=== PATIENT | female | born 1985 | race Caucasian/White ===

== ENCOUNTER → 2023-05-04 09:02 | Outpatient (REF) | payer OTHER, SELFPAY | LOC: HWRAD 09:02 | PROVIDERS: ATTENDING PHYSICIAN Physician Assistant | DX: M25.561 Pain in right knee (principal); S89.91XA Unspecified injury of right lower leg, initial encounter | CPT/HCPCS: 73564 ==

== ENCOUNTER → 2023-09-06 14:39 | Outpatient (REF) | payer OTHER, SELFPAY | LOC: HWRAD 14:39 | PROVIDERS: ATTENDING PHYSICIAN Physician Assistant | DX: S46.002D Unspecified injury of muscle(s) and tendon(s) of the rotator cuff of left shoulder, subsequent encounter (principal); M77.8 Other enthesopathies, not elsewhere classified | CPT/HCPCS: 73030 ==

== ENCOUNTER → 2024-03-17 12:14 | Outpatient (REF) | payer OTHER, SELFPAY | LOC: HWRAD 12:14 | PROVIDERS: ATTENDING PHYSICIAN Physician Assistant | DX: E01.0 Iodine-deficiency related diffuse (endemic) goiter (principal) | CPT/HCPCS: 76536 ==

== ENCOUNTER 2024-07-19 19:02 | Emergency (ER) | payer OTHER, SELFPAY ==
[2024-07-19 19:04] VITALS: BP 208/114
[2024-07-19 19:26] VITALS: BMI 37.6
--- NOTE | 2024-07-19 19:41 | ED.GENMED ---
History of Present Illness
General
Chief Complaint: Extremity Pain (non-traumatic)
Source: patient
Exam Limitations: none
Time Seen by Provider: 07/19/24 19:21
Nursing documentation reviewed up to this point in time: agreed with
History of Present Illness
History of Present Illness:
The patient is a pleasant 38-year-old female who reports a history of high blood pressure. Patient admits that she has not taken her blood pressure medicine yesterday or today because she forgot. Patient reports she was sitting and watching TV at
around 2 PM today and felt sudden onset of heaviness in her right forearm and right hand. Patient reports it was associated with a feeling of a rapid heart rate. Patient denies any chest pain or shortness of breath. She denies weakness and
numbness. Patient reports that her symptoms are nearly gone. She denies injury. She denies back pain. She denies any symptoms of the right face or right leg.
Past History
Past History
ED Past Medical History: HTN and Hypercholesterolemia
ED Past Surgical History: Tonsilectomy
Social History
Tobacco: Former smoker
Alcohol: None
Drug: None
Personal: Single
Living: with family
Employment: Other
Family History
Family History: CAD
Review of Systems
Review of Systems
Allergies reviewed?: Yes
All Other Systems: ROS reviewed and negative except as documented in HPI and ROS
Constitutional: Reports no symptoms
EENT: Reports no symptoms
Respiratory: Reports no symptoms
Cardiac: Reports palpitations
ABD/GI: Reports no symptoms
: Reports no symptoms
Musculoskeletal: Reports muscle stiffness
Skin: Reports no symptoms
Neurological: Reports no symptoms
Endocrine: Reports no symptoms
Hematologic/Lymphatic: Reports no symptoms
Psychiatric: Reports no symptoms
Phy Exam
Physical Exam
Physical Exam:
Physical Exam
General: no apparent distress, not acutely ill
Neck: supple. no meningeal signs. normal psoterior pharynx
Heart: s1/s2 regular rate and rhythm, no murmur. equal radial pulses.
Lungs: no acute respiratory distress. clear bilaterally
Abdomen: normal bowel sounds. not tender. no CVAT
Neuro: alert and oriented. no focal neurological deficits
Skin: No erythema or rash, including area of right upper extremity.
Psychiatric: well kept. interactive and cooperative
Extremities: no edema. no calf tenderness. negative homans. good distal pulses. Strong pulses and excellent cap refill of bilateral upper extremities. No swelling or deformity of right upper extremity. No areas of soft
tissue tenderness or edema of right upper extremity. No bony tenderness of right upper extremity.
Course
Orders/Labs/Results
Orders:
Orders
07/19/24 19:06
ECG [Electrocardiogram (*1)] Urgent
Reason for Study: Palpitations
EKG- Treatment ONCE
07/19/24 19:53
Ibuprofen [Motrin] 600 mg PO NOW STA
07/19/24 19:54
Losartan [Cozaar] 50 mg PO NOW STA
07/19/24 20:22
Complete Blood Count/With Diff Urgent
Comprehensive Metabolic Panel Urgent
Troponin I Urgent
Abnormal Lab Results
07/19/24
20:22
WBC 10.9 H 10^3/uL
(4.8-10.8)
RBC 4.12 L 10^6/uL
(4.20-5.40)
Hgb 11.0 L g/dL
(12.0-16.0)
Hct 33.4 L %
(37.0-47.0)
MCH 26.7 L pg
(27.0-31.0)
MCHC 32.9 L g/dL
(33.0-37.0)
Absolute Lymphs (auto) 3.5 H 10^3/uL
(1.2-3.4)
Chloride 108 H mmol/L
(98-107)
Glucose 161 H mg/dl
(70-99)
07/19/24 20:22
07/19/24 20:22
Vital Signs
Initial and Last Documented VS:
Initial Vital Signs
Temp Pulse Resp BP Pulse Ox
98.7 F 88 16 208/114 99
07/19/24 19:04 07/19/24 19:04 07/19/24 19:04 07/19/24 19:04 07/19/24 19:04
Last Documented Vital Signs
Temp Pulse Resp BP Pulse Ox
98.7 F 75 20 158/95 98
07/19/24 19:04 07/19/24 20:07 07/19/24 20:00 07/19/24 20:07 07/19/24 20:00
MDM/Problems Addressed
Differential Diagnosis Includes:
Right upper extremity radiculopathy, acute coronary syndrome, right arm DVT
MDM/Problems Addressed:
Patient presents with acute nontraumatic right upper extremity arm pain which is now gone completely
Chronic conditions affecting care: HTN
Acute Exacerbation and/or Progression of Chronic Illness:
Patient is acutely hypertensive, likely due to poor compliance with medication
Acute Exacerbation and/or Progression of Chronic Illness: HTN
*Pulse Oximetry
Patient hypoxic: no
*EKG
Interpreted by ED Provider?: Yes
Interpretation: abnormal
Comparison EKG: no changes
Rate: normal
Rhythm: sinus
[place]: normal axis
Interval: normal interval
QRS Pattern: right bundle branch block
Ischemia: non-specific ST changes
*Stone Driller Interpretation
Rate: normal
Interpretation: normal
Rhythm: sinus
*Critical Care Note
Total Time (30-74mins, 75-104mins- exclusive of procedures): Not Applicable
Data Reviewed
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
Source: patient
Patient Management
Social determinants of health affecting care: Living situation and Strong social support
Escalation/DeEscalation of care consider admission/obs:
Patient's Holter monitor shows a normal sinus rhythm for hours in the ED without any sign of cardiac arrhythmia or tachycardia. Patient has excellent neurovascular function of right upper extremity. There is no soft tissue tenderness or edema to
suggest DVT .patient continues to be pain-free in her right arm. Patient's blood pressure greatly improved
ED Attending Note
-
Portions of this chart may have been created with voice recognition software.� Occasional wrong word or��sound alike� substitutions may have occurred due to the inherent limitations of voice recognition software.
Discharge Plan
Departure
Patient Disposition: Home (Routine Discharge)
Date of Disposition: 07/19/24
Time of Disposition: 21:07
Patient with high blood pressure during this ER visit?: Yes
Condition: Good
Covid-19: Not Applicable
Discharge Problem:
Arm pain, right, Palpitations
Instructions: Muscle and Bone Pain (DC), Palpitations - ED discharge instructions, BLOOD PRESSURE
Prescriptions:
No Action
Vitamin D3
1,000 unit PO DAILY
norgestimate-ethinyl estradiol [Tri-Estarylla] 0.18/0.215/0.25 mg-35 mcg (28) Tablet
1 tab PO DAILY
rosuvastatin 5 mg Tablet
10 mg PO DAILY
losartan 50 mg tablet
50 mg PO DAILY Qty: 30 0RF
Referrals:
Aura Coyle PA [Family Provider, Family Practice]
Activity Restrictions/Additional Instructions:
Take 600 mg of Advil every 6-8 hours for any right arm pain. If it continues to hurt, please follow-up with your primary care doctor in about 1 week.
Interventions
Interventions:
*Risk Screen - Suicide Last Done: 07/19/24 19:27
*General Assessment Last Done: 07/19/24 19:27
*Neglect/Abuse Screening Last Done: 07/19/24 19:27
*ED- Fall Risk Assessment Last Done: 07/19/24 19:27
*ED COVID-19 Vaccine History Last Done: 07/19/24 19:27
ED-Skin Assessment Last Done: 07/19/24 19:27
ED-Peripheral Vascular Assessment Last Done: 07/19/24 19:27
ED-Musculoskeletal Assessment Last Done: 07/19/24 19:27
Discharge Date and Time
Print Language: HEBREW
[2024-07-19 20:00] VITALS: BP 158/95
[2024-07-19] MEDS: MOTRIN 600 MG PO (20:07)
[2024-07-19] MEDS: COZAAR 50 MG PO (20:07)
[2024-07-19 20:29] LABS: % Basophils 0.4 % (0-2); % Eosinophils 2.4 % (0-6); % Immature Granulocytes 0.4 % (0-0.5); % Lymphocytes 32.5 % (20.5-51.1); % Neutrophils 59.3 % (42.2-75.2); Absolute Eosinophils 0.3 10^3/uL (0-0.7); Absolute Lymphocytes 3.5 10^3/uL (1.2-3.4); Absolute Monocytes 0.6 10^3/uL (0.1-0.6); Absolute Neutrophils 6.5 10^3/uL (1.4-6.5); Hematocrit 33.4 % (37.0-47.0); Mean Corp Hgb Conc. 32.9 g/dL (33.0-37.0); Mean Corpuscular Hgb 26.7 pg (27.0-31.0); Mean Corpuscular Volume 81.1 fL (81.0-99.0); Mean Platelet Volume 9.8 fL (7.4-10.4); Nucleated Red Blood Cells % 0 %; Platelet Count 345 10^3/uL (130-400); Red Blood Cell Count 4.12 10^6/uL (4.20-5.40); Red Cell Dist. Width 13.8 % (11.5-14.5); White Blood Cell Count 10.9 10^3/uL (4.8-10.8)
[2024-07-19 20:45] LABS: ALT (SGPT) 12 U/L (0-35); AST (SGOT) 16 U/L (14-36); Albumin 3.8 g/dl (3.5-5.0); Alkaline Phosphatase 99 U/L (38-126); Blood Urea Nitrogen 14 mg/dl (7-17); Calcium 9.4 mg/dl (8.4-10.2); Carbon Dioxide 28 mmol/L (22-30); Chloride 108 mmol/L (98-107); Estimated Creatinine Clearance 92 ml/min; Glucose 161 mg/dl (70-99); Potassium 3.8 mmol/L (3.5-5.1); Sodium 140 mmol/L (135-145); Total Bilirubin 0.2 mg/dl (0.2-1.3); Total Protein 6.9 g/dl (6.3-8.2); eGFR > 60.00
[2024-07-19 20:54] LABS: Troponin I < 0.012 ng/ml
[2024-07-19 21:33] VITALS: BP 157/94
== END 2024-07-19 21:38 | disposition home or self-care (01) ==
LOC: EMR 19:02
PROVIDERS: EMERGENCY PHYSICIAN Emergency Medicine; FAMILY PHYSICIAN Physician Assistant
DX: M79.601 Pain in right arm (principal); R00.2 Palpitations; I10 Essential (primary) hypertension; E78.00 Pure hypercholesterolemia, unspecified; Z82.49 Family history of ischemic heart disease and other diseases of the circulatory system; Z87.891 Personal history of nicotine dependence
CPT/HCPCS: 99283; 80053; 84484; 85025; 93005

== ENCOUNTER → 2024-07-30 13:25 | Outpatient (REF) | payer OTHER, SELFPAY | LOC: HWRAD 13:25 | PROVIDERS: ATTENDING PHYSICIAN Physician Assistant | DX: M54.2 Cervicalgia (principal) | CPT/HCPCS: 72052 ==

== ENCOUNTER → 2024-10-03 08:57 | Outpatient (REF) | payer OTHER, SELFPAY | LOC: WDC 08:57 | PROVIDERS: ATTENDING PHYSICIAN Physician Assistant | DX: N63.21 Unspecified lump in the left breast, upper outer quadrant (principal) | CPT/HCPCS: 76642; 77062; 77066 ==

== ENCOUNTER 2024-11-23 14:28 | Emergency (ER) | payer OTHER, SELFPAY ==
[2024-11-23 14:37] VITALS: BP 185/100
--- NOTE | 2024-11-23 16:07 | ED.GENMED ---
History of Present Illness
General
Chief Complaint: Musculo-Skeletal Complaint
Time Seen by Provider: 11/23/24 15:40
History of Present Illness
History of Present Illness:
39-year-old female without significant past medical history presenting for left shoulder pain. Patient reports that she woke up with the pain this morning. Denies any inciting injury or trauma. She is unsure if she slept any unusual position.
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 She did not take any medications for pain. Notes some tingling to her left hand. Denies chest pain or difficulty breathing. Denies fever cough or additional acute
medical complaint
Past History
Past History
ED Past Medical History: HTN and Hypercholesterolemia
ED Past Surgical History: Tonsilectomy
Social History
Tobacco: Former smoker
Alcohol: None
Drug: None
Personal: Single
Living: with family
Employment: Other
Family History
Family History: CAD
Phy Exam
Physical Exam
Physical Exam:
General: Well-appearing, no clinical signs of dehydration, nontoxic and in no acute distress
HEENT: protecting airway
Neck: appears supple
CV: Normal heart rate, regular rhythm
Resp: No accessory muscle use, no increased work of breathing, lungs clear to auscultation bilaterally
Abd: Soft and non-distended, no tenderness to palpation, normal bowel sounds
Extremities: No deformities, no swelling. Mild tenderness to the left posterior shoulder without overlying skin changes. Mild hypertonicity. Range of motion intact. Distal sensation and pulses intact
Neuro: alert, no focal neurologic deficit
: deferred
Rectal: deferred
Psych: Normal affect
Skin: Intact
Course
Orders/Labs/Results
Orders:
Orders
11/23/24 16:02
Ketorolac [Toradol] 15 mg IM NOW STA
11/23/24 16:03
Lidocaine [Lidocaine 4% Patch] 1 patch TOPICAL ONCE ONE
Apply Lidocaine patch(s) to:: L-shoulder
Vital Signs
Initial and Last Documented VS:
Initial Vital Signs
Temp Pulse Resp BP Pulse Ox
98.0 F 83 16 185/100 98
11/23/24 14:37 11/23/24 14:37 11/23/24 14:37 11/23/24 14:37 11/23/24 14:37
Last Documented Vital Signs
Temp Pulse Resp BP Pulse Ox
98.0 F 83 16 185/100 98
11/23/24 14:37 11/23/24 14:37 11/23/24 14:37 11/23/24 14:37 11/23/24 16:10
MDM/Problems Addressed
MDM/Problems Addressed:
39-year-old female with history of hypertension presenting for left upper back pain. Vital signs significant for high blood pressure, however patient did not take her blood pressure medication today.
On exam patient is resting comfortably, no acute distress. Mild tenderness to the left upper thoracic back/posterior shoulder. No changes. No infectious findings. Range of motion is grossly intact, no report of trauma without concern for
infection or dislocation. No neurovascular compromise to the left upper extremity. Suspect mild muscle spasm and muscle strain. Will treat with Toradol and lidocaine patch. No current indication for advanced imaging. Will screen with EKG.
However no significant ACS risk factors. Feel stable for discharge with outpatient supportive therapy.
*Pulse Oximetry
SaO2: 98
Oxygen Mode of Delivery: Room air
Patient hypoxic: no
*Critical Care Note
Total Time (30-74mins, 75-104mins- exclusive of procedures): Not Applicable
ED Attending Note
-
Portions of this chart may have been created with voice recognition software.� Occasional wrong word or��sound alike� substitutions may have occurred due to the inherent limitations of voice recognition software.
Discharge Plan
Departure
Patient Disposition: Home (Routine Discharge)
Date of Disposition: 11/23/24
Time of Disposition: 16:13
Patient with high blood pressure during this ER visit?: Yes
Condition: Good
Discharge Problem:
Left shoulder pain, Muscle strain
Instructions: Muscle Strain (DC), Shoulder pain - ED (DC)
Prescriptions:
New
ibuprofen 600 mg tablet
600 mg PO Q8H PRN (Reason: Pain) Qty: 20 0RF
lidocaine 4 % adhesive patch,medicated
1 patch topical DAILY PRN (Reason: Pain) Qty: 10 0RF
cyclobenzaprine 10 mg tablet
10 mg PO BID PRN (Reason: muscle spasm) Qty: 10 0RF
No Action
Vitamin D3
1,000 unit PO DAILY
norgestimate-ethinyl estradiol [Tri-Estarylla] 0.18/0.215/0.25 mg-35 mcg (28) Tablet
1 tab PO DAILY
rosuvastatin 5 mg Tablet
10 mg PO DAILY
losartan 50 mg tablet
50 mg PO DAILY Qty: 30 0RF
Referrals:
Denise Pradhan MD [Family Provider, Family Practice]
Activity Restrictions/Additional Instructions:
You were seen in the emergency department for left posterior shoulder pain
You were found to have reassuring examination. Blood pressure was noted to be elevated. Please follow-up with your primary care doctor. Please take medications as needed for pain.
Please follow-up closely with your primary care physician.
Return to the emergency department for any worsening of your symptoms, or any development of chest pain, difficulty breathing, abdominal pain with persistent vomiting and inability to tolerate food or liquid by mouth (concern for dehydration),
weakness, headache or confusion, fever greater than 100.4, or any additional symptoms that are concerning to you.
Thank you for choosing [facility].
Interventions
Interventions:
*Risk Screen - Suicide Last Done: 11/23/24 14:37
*Neglect/Abuse Screening Last Done: 11/23/24 14:37
Discharge Date and Time
Print Language: YORUBA
[2024-11-23 16:16] VITALS: BP 186/111; BMI 36.6
[2024-11-23] MEDS: LIDOCAINE 4% PATCH 1 PATCH TOPICAL (16:16)
[2024-11-23] MEDS: TORADOL 15 MG IM (16:17)
[2024-11-23 16:34] VITALS: BP 164/85
== END 2024-11-23 16:41 | disposition home or self-care (01) ==
LOC: EMR 14:28
PROVIDERS: EMERGENCY PHYSICIAN Student in an Organized Health Care Education/Training Program; FAMILY PHYSICIAN Family Medicine
DX: M25.512 Pain in left shoulder (principal); M54.6 Pain in thoracic spine; I10 Essential (primary) hypertension; E78.00 Pure hypercholesterolemia, unspecified; Z87.891 Personal history of nicotine dependence
CPT/HCPCS: 96372; 99284; 93005

== ENCOUNTER → 2024-12-03 15:05 | Outpatient (REF) | payer OTHER, SELFPAY | LOC: HWRAD 15:05 | PROVIDERS: ATTENDING PHYSICIAN Physician Assistant | DX: R22.42 Localized swelling, mass and lump, left lower limb (principal) | CPT/HCPCS: 76882 ==

== ENCOUNTER → 2025-01-29 11:02 | Outpatient (REF) | payer OTHER, SELFPAY | LOC: RAD 11:02 | PROVIDERS: ATTENDING PHYSICIAN Physician Assistant | DX: M25.572 Pain in left ankle and joints of left foot (principal); M25.562 Pain in left knee | CPT/HCPCS: 73564; 73610 ==

== ENCOUNTER 2025-02-15 14:27 | Emergency (ER) | payer OTHER, SELFPAY ==
[2025-02-15 14:29] VITALS: BP 172/110
[2025-02-15 14:33] VITALS: BP 191/121
[2025-02-15 14:34] VITALS: BP 196/107
[2025-02-15] MEDS: DECADRON 10 MG PO (18:55)
[2025-02-15 19:01] VITALS: BP 187/95
--- NOTE | 2025-02-15 19:54 | ED.MUSCINJ ---
HPI-Injury
General
Chief Complaint: Musculo-Skeletal Complaint
Source: patient
Exam Limitations: none
Time Seen by Provider: 02/15/25 18:27
Nursing documentation reviewed up to this point in time: agreed with
History of Present Illness-Injury
Initial Injury comments:
39-year-old female presenting with concerns regarding weakness and the sensation of her left leg 'giving out,' which began a couple of days ago. She reports having to hold onto objects to prevent falls and mentions intermittent weakness,
particularly when moving around a lot.
She has a known history of mild arthritis in the knee and has seen her primary care physician, Dr. Shemar Lentz, for related issue recently and ernandez xray of left knee and foot and been prescribed P/T starting Feb 26 for muscle weakness in left leg.
She denies loss of bowel or bladder control but complains of upper thigh and left lower back pain. The pain does not radiate past the knee
She is currently on medication for hypertension (Lisinopril), cholesterol, vitamin D supplementation, and oral contraceptives. Her blood pressure was noted to be elevated upon arrival, although she usually takes her medication at night.
Past History
Past History
ED Past Medical History: HTN and Hypercholesterolemia
ED Past Surgical History: Tonsilectomy
Social History
Tobacco: Former smoker
Alcohol: None
Drug: None
Personal: Single
Living: with family
Employment: Other
Family History
Family History: CAD
Review of Systems
Review of Systems
Allergies reviewed?: Yes
All Other Systems: ROS reviewed and negative except as documented in HPI and ROS
Phy Exam
Physical Exam
Physical Exam:
GENERAL: No acute distress. A&Ox3.
CONSTITUTIONAL: Afebrile.
EYES: clear, conjunctivae normal
RESPIRATORY: Regular respirations, nonlabored, lungs clear.
CARDIOVASCULAR: Regular rate and rhythm, no murmurs, no rubs.
GI: Soft, nontender, normal BS
MUSCULOSKELETAL: Moves with ease. Well perfused. Tender to palpate left lower back and buttock. Negative bilateral SLE. Full range of motion of spine to forward flexion with fingertips touching toes and standing back up again, rotation of torso
without discomfort. Ambulating well
SKIN: Warm, dry, pink
PSYCH: Normal mood and affect. Well kept, interactive and appropriate
NEUROLOGIC: Awake, alert and oriented. Strength 5/5 with full range of motion right lower extremity. Strength 4/5 with mildly limited range of motion to straight leg raise left lower extremity. Equal patellar reflexes. No focal neurological
deficits. Ambulates with steady gait.
Injury Course
Orders/Labs/Results
Orders:
Orders
02/15/25 18:41
Dexamethasone [Decadron] 10 mg PO NOW STA
MDM/Problems Addressed
Differential Diagnosis Includes:
sciatica, low back strain, herniated disc
MDM/Problems Addressed:
39-year-old female presenting with concerns regarding weakness and the sensation of her left leg 'giving out,' which began a couple of days ago. She reports having to hold onto objects to prevent falls and mentions intermittent weakness,
particularly when moving around a lot.
She has a known history of mild arthritis in the knee and has seen her primary care physician, Dr. Shemar Lentz, for related issue recently and ernandez xray of left knee and foot and been prescribed P/T starting Feb 26 for muscle weakness in left leg.
She denies loss of bowel or bladder control but complains of upper thigh and left lower back pain. The pain does not radiate past the knee
She is currently on medication for hypertension (Lisinopril), cholesterol, vitamin D supplementation, and oral contraceptives. Her blood pressure was noted to be elevated upon arrival, although she usually takes her medication at night.
*Pulse Oximetry
SaO2: 100
Oxygen Mode of Delivery: Room air
Patient hypoxic: not evaluated
*Critical Care Note
Total Time (30-74mins, 75-104mins- exclusive of procedures): Not Applicable
ED Attending Note
-
Portions of this chart may have been created with voice recognition software.� Occasional wrong word or��sound alike� substitutions may have occurred due to the inherent limitations of voice recognition software.
Discharge Plan
Departure
Patient Disposition: Home (Routine Discharge)
Date of Disposition: 02/15/25
Time of Disposition: 18:48
Patient with high blood pressure during this ER visit?: Yes
Condition: Good
Discharge Problem:
Low back pain with left-sided sciatica
Instructions: Low back pain - ED (DC), Sciatica - ED (DC), BLOOD PRESSURE
Prescriptions:
New
prednisone 10 mg tablet
10 mg PO DAILY Qty: 20 0RF
Rx Instructions:
Days 1 & 2 take 40 mg, days 3 & 4 take 30 mg, days 5 & 6 take 20 mg, days 7 & 8 take 10 mg
No Action
Vitamin D3
1,000 unit PO DAILY
norgestimate-ethinyl estradiol [Tri-Estarylla] 0.18/0.215/0.25 mg-35 mcg (28) Tablet
1 tab PO DAILY
rosuvastatin 5 mg Tablet
10 mg PO DAILY
losartan 50 mg tablet
50 mg PO DAILY Qty: 30 0RF
ibuprofen 600 mg tablet
600 mg PO Q8H PRN (Reason: Pain) Qty: 20 0RF
lidocaine 4 % adhesive patch,medicated
1 patch topical DAILY PRN (Reason: Pain) Qty: 10 0RF
cyclobenzaprine 10 mg tablet
10 mg PO BID PRN (Reason: muscle spasm) Qty: 10 0RF
Referrals:
Aura Coyle PA [Family Provider, Family Practice] - As needed
Activity Restrictions/Additional Instructions:
As we discussed, with your left lower back pain and radiation of the pain to your left thigh, it sounds like you have sciatica.
Ibuprofen 600 mg, with food as needed twice a day
I sent a prescription to your pharmacy for a prednisone taper, started tomorrow you were given a dose of steroid here today
Let your therapist know if the prednisone helped when you go to your physical therapy appointment.
Take your blood pressure medicine as you typically do in the evening when you get home
Recheck your blood pressure daily for the next 3 days and discussed with your doctor if it remains high as you may need medication adjustment.
Interventions
Interventions:
*General Assessment Last Done: 02/15/25 18:52
*Neglect/Abuse Screening Last Done: 02/15/25 18:52
*ED COVID-19 Vaccine History Last Done: 02/15/25 14:29
*ED Influenza Vaccine History Last Done: 02/15/25 14:29
*Risk Screen - Suicide (C-SSRS) Last Done: 02/15/25 14:29
*Nursing Disposition Last Done: 02/15/25 19:04
ED-Musculoskeletal Assessment Last Done: 02/15/25 17:45
Discharge Date and Time
Discharge Date/Time: 02/15/25 19:04
Print Language: [id number]
== END 2025-02-15 19:04 | disposition home or self-care (01) ==
LOC: EMR 14:27
PROVIDERS: EMERGENCY PHYSICIAN Emergency Medicine; FAMILY PHYSICIAN Physician Assistant
DX: M54.42 Lumbago with sciatica, left side (principal); I10 Essential (primary) hypertension; E78.00 Pure hypercholesterolemia, unspecified; M17.10 Unilateral primary osteoarthritis, unspecified knee; Z87.891 Personal history of nicotine dependence; Z82.49 Family history of ischemic heart disease and other diseases of the circulatory system
CPT/HCPCS: 99283